=== PATIENT | male | born 1950 | race American Indian/Alaskan Native ===

== ENCOUNTER 2018-05-04 18:58 | Emergency (ER) | payer MEDICARE ==
[2018-05-04 20:20] LABS: Bilirubin,Urine NEG (Negative); Blood,Urine NEG (Negative); Color,Urine Yellow (Yellow); Mucus,Urine 1+ /HPF; Urobilinogen,Urine < 2.0 mg/dL (<2.0)
[2018-05-04 20:32] LABS: Amphetamine Screen,Urine PRESUMPTIVE NEGATIVE; Benzodiazepines Screen,Urine PRESUMPTIVE NEGATIVE; Cannabinoid Screen,Urine PRESUMPTIVE NEGATIVE; Cocaine Screen,Urine PRESUMPTIVE NEGATIVE; Methadone Screen,Urine PRESUMPTIVE NEGATIVE; Opiate Screen,Urine PRESUMPTIVE NEGATIVE
[2018-05-04 20:32] LABS: Basophils % (Auto) 0.7 % (0.0-1.8); Eosinophils % (Auto) 0.3 % (0.0-4.3); Hematocrit 39.5 % (35.5-45.6); Hemoglobin 13.2 gm/dl (11.8-15.2); Lymphocytes # (Auto) 1.5 K/mm3 (1.2-5.4); Lymphocytes % (Auto) 22.6 % (13.4-35.0); Mean Corpuscular HGB Conc 33 % (32-34); Mean Corpuscular Hemoglobin 33 pg (28-32); Mean Corpuscular Volume 99 fl (84-94); Monocytes # (Auto) 0.4 K/mm3 (0.0-0.8); Monocytes % (Auto) 5.4 % (0.0-7.3); Platelet Count 226 K/mm3 (140-440); Red Blood Count 4.01 M/mm3 (3.65-5.03); Red Cell Distribution Width 13.3 % (13.2-15.2)
--- NOTE | 2018-05-04 20:40 | Emergency Department Report ---
ED Psych HPI - General Chief Complaint: Psych Stated Complaint: 1013 Time Seen by Provider: 05/04/18 20:07 Source: patient Mode of arrival: Ambulatory - History of Present Illness Initial Comments: Mr. Gill is a healthy 67-year-old male with history of hypertension GERD depression. Last tetanus was 3-4 years ago. He has a history depression and previous suicide attempt. Today he had a witnessed suicide attempt. His called 911 when he was found to have cut both wrists with a corrugated box machine operator. Bleeding controlled. He was quite evasive re: reason why he cut himself. He did drink alcohol today. He does not have any other concerns. He did admit to previous suicide attempt,. However Mr Gill will not provide much history. He is awake and alert. However he is hesitant to cooperate with the history. He does drink alcohol daily. [facility] Complaint: other (suicide attempt) Associated Psychiatric Symptoms: depression History of same: Yes Context: recent alcohol abuse Associated Symptoms: denies other symptoms If Self Harm: self-inflicted trauma (cut both wrists with corrugated box machine operator) - Related Data Allergies Allergy/AdvReac Type Severity Reaction Status Date / Time No Known Allergies Allergy Unverified 05/04/18 19:44 ED Review of Systems ROS: Stated complaint: 1013 Other details as noted in HPI Comment: All other systems reviewed and negative Respiratory: denies: cough Cardiovascular: denies: chest pain ED Past Medical Hx - Past Medical History Previous Medical History?: Yes Hx Hypertension: Yes Hx GERD: Yes Hx Psychiatric Treatment: Yes (depression) - Surgical History Past Surgical History?: No - Social History Smoking Status: Current Every Day Smoker Substance Use Type: Alcohol ED Physical Exam - General Limitations: No Limitations General appearance: alert, in no apparent distress - Head Head exam: Present: atraumatic, normocephalic - Eye Eye exam: Present: normal appearance - ENT ENT exam: Present: mucous membranes moist - Neck Neck exam: Present: normal inspection - Respiratory Respiratory exam: Present: normal lung sounds bilaterally. Absent: respiratory distress, wheezes, rales, rhonchi - Cardiovascular Cardiovascular Exam: Present: regular rate, normal rhythm, normal heart sounds. Absent: systolic murmur, diastolic murmur, rubs, gallop - GI/Abdominal GI/Abdominal exam: Present: soft, normal bowel sounds. Absent: distended, tenderness, guarding, rebound - Rectal Rectal exam: Present: deferred - Neurological Exam Neurological exam: Present: alert, oriented X3 - Psychiatric Psychiatric exam: Present: depressed, flat affect, suicidal ideation. Absent: agitated, anxious, manic, homicidal ideation - Skin Skin exam: Present: warm, dry, intact, normal color. Absent: rash - Other Other exam information: superficial clear linear laceration right wrist, skin edges are approximated no bleeding 5 cm left wrist: 5 cm clear deep laceration with subcutaneous muscle expossed, MUR nerves distally intact no tendon exposure intact radial 2+ pulse ED Course Vital Signs 05/04/18 05/04/18 05/04/18 19:45 19:51 20:00 Temperature 99.2 F 98.1 F Pulse Rate 96 H 95 H Respiratory 18 17 18 Rate Blood Pressure 146/82 125/80 O2 Sat by Pulse 98 94 98 Oximetry - Laceration /Wound Repair Left Wrist Wound Location: upper extremity Wound Length (cm): 5 Wound's Depth, Shape: superficial, linear Wound Explored: clean Irrigated w/ Saline (ccs): 250 Betadine Prep?: No Anesthesia: Lidocaine w/ Epi Volume Anesthetic (ccs): 5 Wound Debrided: minimal Number of Sutures: 9 (tab) Layer Closure?: No Sterile Dressing Applied?: Yes Progress: 9 tab placed with good approximation and eversion. ED Medical Decision Making - Lab Data Result diagrams: 05/04/18 20:12 05/04/18 20:12 Laboratory Results - last 24 hr 05/04/18 05/04/18 05/04/18 20:12 20:12 20:12 WBC RBC Hgb Hct MCV MCH MCHC RDW Plt Count Lymph % (Auto) [place] % (Auto) Eos % (Auto) Baso % (Auto) Lymph # [place] # Eos # Baso # Seg Neutrophils % Seg Neutrophils # Sodium 140 Potassium 3.7 Chloride 100.6 Carbon Dioxide 25 Anion Gap 18 BUN 15 Creatinine 1.1 Estimated GFR > 60 BUN/Creatinine Ratio 14 Glucose 93 Calcium 9.6 Urine Color Urine Turbidity Urine pH Ur Specific [place] Urine Protein Urine Glucose (UA) Urine Ketones Urine Blood Urine Nitrite Urine Bilirubin Urine Urobilinogen Ur Leukocyte Esterase Urine WBC (Auto) Urine RBC (Auto) U Epithel Cells (Auto) Urine Mucus Salicylates < 0.3 L Urine Opiates Screen Urine Methadone Screen Acetaminophen < 5.0 L Ur Barbiturates Screen Ur Phencyclidine Scrn Ur Amphetamines Screen U Benzodiazepines Scrn Urine Cocaine Screen U Marijuana (THC) Screen Drugs of Abuse Note Plasma/Serum Alcohol 05/04/18 05/04/18 05/04/18 20:12 20:12 Unknown WBC 6.6 RBC 4.01 Hgb 13.2 Hct 39.5 MCV 99 H MCH 33 H MCHC 33 RDW 13.3 Plt Count 226 Lymph % (Auto) 22.6 [place] % (Auto) 5.4 Eos % (Auto) 0.3 Baso % (Auto) 0.7 Lymph # 1.5 [place] # 0.4 Eos # 0.0 Baso # 0.0 Seg Neutrophils % 71.0 H Seg Neutrophils # 4.7 Sodium Potassium Chloride Carbon Dioxide Anion Gap BUN Creatinine Estimated GFR BUN/Creatinine Ratio Glucose Calcium Urine Color Yellow Urine Turbidity Clear Urine pH 5.0 Ur Specific [place] 1.025 Urine Protein 100 mg/dl Urine Glucose (UA) Neg Urine Ketones 20 Urine Blood Neg Urine Nitrite Neg Urine Bilirubin Neg Urine Urobilinogen < 2.0 Ur Leukocyte Esterase Neg Urine WBC (Auto) 2.0 Urine RBC (Auto) 2.0 U Epithel Cells (Auto) 2.0 Urine Mucus 1+ Salicylates Urine Opiates Screen Urine Methadone Screen Acetaminophen Ur Barbiturates Screen Ur Phencyclidine Scrn Ur Amphetamines Screen U Benzodiazepines Scrn Urine Cocaine Screen U Marijuana (THC) Screen Drugs of Abuse Note Plasma/Serum Alcohol < 0.01 05/04/18 Unknown WBC RBC Hgb Hct MCV MCH MCHC RDW Plt Count Lymph % (Auto) [place] % (Auto) Eos % (Auto) Baso % (Auto) Lymph # [place] # Eos # Baso # Seg Neutrophils % Seg Neutrophils # Sodium Potassium Chloride Carbon Dioxide Anion Gap BUN Creatinine Estimated GFR BUN/Creatinine Ratio Glucose Calcium Urine Color Urine Turbidity Urine pH Ur Specific [place] Urine Protein Urine Glucose (UA) Urine Ketones Urine Blood Urine Nitrite Urine Bilirubin Urine Urobilinogen Ur Leukocyte Esterase Urine WBC (Auto) Urine RBC (Auto) U Epithel Cells (Auto) Urine Mucus Salicylates Urine Opiates Screen Presumptive negative Urine Methadone Screen Presumptive negative Acetaminophen Ur Barbiturates Screen Presumptive negative Ur Phencyclidine Scrn Presumptive negative Ur Amphetamines Screen Presumptive negative U Benzodiazepines Scrn Presumptive negative Urine Cocaine Screen Presumptive negative U Marijuana (THC) Screen Presumptive negative Drugs of Abuse Note Disclamer Plasma/Serum Alcohol Vital Signs - 8 hr 05/04/18 05/04/18 05/04/18 19:45 19:51 20:00 Temperature 99.2 F 98.1 F Pulse Rate 96 H 95 H Respiratory 18 17 18 Rate Blood Pressure 146/82 125/80 O2 Sat by Pulse 98 94 98 Oximetry - Medical Decision Making Mr. Gill presents with acute depression, suicide attempt. He cut both wrists with corrugated box machine operator. He is medically clear for psychiatric care. Awaiting placement to psychiatric facility. Laceration repaired according to procedure note. Critical care attestation.: If time is entered above; I have spent that time in minutes in the direct care of this critically ill patient, excluding procedure time. ED Disposition Clinical Impression: Suicide attempt, Laceration of wrist, left, Depression Disposition: [id number] ANOTHER TYPE [facility]TH[facility]ARE Is pt being admited?: No Does the pt Need Aspirin: No Condition: Stable
[2018-05-04] MEDS ORDERED: NACL 0.9% IR ONE (20:41)
[2018-05-04] MEDS ORDERED: XYLOCAINE 2%/EPI 1:100,000 INFILTRATI ONE (20:41)
[2018-05-04 20:44] LABS: BUN/Creatinine Ratio 14; Blood Urea Nitrogen 15 mg/dL (9-20); Calcium 9.6 mg/dL (8.4-10.2); Hemolysis Index 2
[2018-05-05] MEDS ORDERED: TYLENOL PO ONE (06:01)
[2018-05-05 11:41] VITALS: BP 141/76
--- NOTE | 2018-05-05 12:55 | Consultation ---
History of Present Illness - Reason for Consult Consult date: 05/05/18 Reason for consult: Mental Health Evaluation Requesting physician: DEVAUGHN PINZON - Chief Complaint Chief complaint: "I am tired of life" - History of Present Psychiatric Illness 67-year-old AA male with history of depression presenting to ER for a suicide attempt by cutting his left wrist. Today the patient is calm and cooperative during the assessment. He stated that his life is a "problem" and he does not feel like living. He stated that he cut his wrist because he felt overwhelmed yesterday. He stated having life stressors (financial problems and marital issues) at this time. He rate his depression 10/10, with 10 being the worse. He stated a previous suicide attempt by overdose. He stated a hx of depression and not be compliant with his medication in several months because he cannot afford them. He denies HI's and AVH's. He stated that erratic sleep with a "okay" appetite. He denies recreational drug use and alcohol consumption (etoh). Medications and Allergies Allergies Allergy/AdvReac Type Severity Reaction Status Date / Time No Known Allergies Allergy Unverified 05/04/18 19:44 Past psychiatric history - Past Medical History Past Medical History: GERD, hypertension Past Surgical History: No surgical history - past Psychiatric treatment and history Psych: Depression psychiatric treatment history: Hx of depression. Denies a fam psy hx. - Social History Social history: lives with family Mental Status Exam - Vital signs Last Vital Signs Temp 97.9 F 05/05/18 11:39 Pulse 69 05/05/18 11:39 Resp 18 05/05/18 11:39 BP 141/76 05/05/18 11:39 Pulse Ox 96 05/05/18 11:39 - Exam Narrative exam: MSE: Appearance: calm, cooperative Behavior: regular eye contact Speech: regular rate and tone Mood: "depressed" withdrawn Affect: congruent to mood Thought Process: linear Thought Content: denies HI's and AVH's Motor Activity: lying in bed Cognition: A/O x 3 Insight: variable Judgment: variable Results Result Diagrams: 05/04/18 20:12 05/04/18 20:12 Abnormal lab results 05/04/18 05/04/18 05/04/18 Range/Units 20:12 20:12 20:12 MCV 99 H (84-94) fl MCH 33 H (28-32) pg Seg Neutrophils % 71.0 H (40.0-70.0) % Salicylates < 0.3 L (2.8-20.0) mg/dL Acetaminophen < 5.0 L (10.0-30.0) ug/mL All other labs normal. Assessment and Plan Assessment and plan: Impression: MDD, Severe Type. Today the patient is calm and cooperative during the assessment. The patient his left wrist. DDx: R/O Bipolar DO, R/O Personality DO Recommendation/Plan: Continue 1013 with placement to [facility] today.
== END 2018-05-05 12:47 | disposition other institution (70) ==
LOC: ED 18:58
DX: S61.511A Laceration without foreign body of right wrist, initial encounter (principal); F32.9 Major depressive disorder, single episode, unspecified; I10 Essential (primary) hypertension; K21.9 Gastro-esophageal reflux disease without esophagitis; F17.200 Nicotine dependence, unspecified, uncomplicated; X78.8XXA Intentional self-harm by other sharp object, initial encounter; Y93.89 Activity, other specified; Y92.89 Other specified places as the place of occurrence of the external cause; Y99.8 Other external cause status
CPT/HCPCS: 12002; 36415; 80048; 80307; 81001; 85025; 99283; G0480; 80320